=== PATIENT | male | born 1970 | race Caucasian/White ===

== ENCOUNTER → 2018-12-27 09:00 | Outpatient (CLI) | payer OTHER ==
[~2018-12-27 09:00] MED LIST: COZAAR50 MG PO; TOPAMAX100 MG PO; VERELAN180 MG PO
[2018-12-30 00:30] VITALS: BMI 35.7
--- NOTE | 2018-12-31 13:28 | ST ---
PATIENT:RODNEY SOSA MEDICAL RECORD: [id number] SEX: M LOCATION:[facility] ORDER #: ADMISSION DATE: 12/27/18 AGE OF PATIENT: 48 REFERRING PHYSICIAN: INTERPRETING PHYSICIAN: QUYEN BRUSH MD DATE OF SERVICE: 12/27/2018 INDICATIONS: Angina, shortness of breath, hypertension. He was exercised on a standard Priyank protocol for 7 minutes 45 seconds achieving 85% max target heart rate response with 33 mCi of sestamibi injected at peak stress, 11 mCi used previously for rest images. FINDINGS: Gated SPECT reveals preserved ejection fraction at 53% with decreased thickening and brightening throughout the inferior segments. SPECT Imaging: Cardiolite was used as myocardial perfusion agent. There is a mixed perfusion defect inferiorly, partially fixed, partially reversible as well. There is reversibility in the lateral segments. This includes the basal, mid and apical lateral segments. The degree reversibility is mild to moderate. The amount of myocardium involved between the 2 defects is large. OVERALL IMPRESSION: This is an ekvitzlvhcpj-xt-mbld risk nuclear stress test with large area of reversible ischemia inferiorly, laterally as well as partially fixed perfusion defect inferiorly suggestive of multivessel coronary artery disease. TRANSINT:[id number] Voice Confirmation ID: [id number] DOCUMENT ID: [id number] QUYEN BRUSH MD at 1328 CC: [id number] ZACARIAS [id number] DICTATION DATE: 12/27/18 1617 SERVER ENGINEER: 12/28/18 0447 DEP CLI 12/27/18 [facility] [address] [place] [address]
== END | disposition home or self-care (01) ==
LOC: D.HCCARDIO 09:00
PROVIDERS: ATTEND Internal Medicine Interventional Cardiology
DX: I20.9 Angina pectoris, unspecified (principal)

== ENCOUNTER 2018-12-29 20:32 | Observation (INO) | payer OTHER ==
[~2018-12-29] VITALS: Ht 185.4 cm; Wt 122.7 kg
--- NOTE | ~2018-12-29 | HEMODYNAMI ---
PATIENT:RODNEY SOSA MEDICAL RECORD: [id number] : 68 LOCATION:[address] ADMISSION DATE: 12/29/18 Generatedon:12/30/201811:42 Patient name: RODNEY SOSA Patient #: [id number] SSN: : 1970 Date of study: 12/30/2018 Page: Of Hemodynamic Procedure Report Patient Data Patient Demographics Procedure consent was obtained First Name: RODNEY Gender: Male Last Name: IAN : 1970 Patient #: [id number] Age: 48 year(s) Race: Unknown Additional ID: [id number] Contact details [address]: [address] [place] [address] State: [place] City: [place] Zip code: [address] Past Medical History Allergies: No known allergies Admission Admission Data Admission Date: 12/29/2018 Admission Time: 20:45 Room #: [facility] Procedure Procedure Types Cath Procedure Diagnostic Procedure C [facility] w/Coronaries Procedure Description Procedure Date Procedure Date: 12/30/2018 Procedure Start Time: 11:28 Procedure End Time: 11:38 Procedure Staff Name Function Jalen Gary MD Performing Physician Rudy Thao RT Monitor Alida Pink RN Nurse Nenita Green RN Nurse Eli Pace RT Monitor Procedure Data Cath Procedure Fluoroscopy Diagnostic fluoroscopy Total fluoroscopy Time: 1.4 time: 1.4 min min Diagnostic fluoroscopy Total fluoroscopy dose: 409 dose: 409 mGy mGy Contrast Material Contrast Material Type Amount (ml) Isovue 300 54 Entry Location Entry Primary Successful Side Size Upsize Upsize Entry Closure Uribe ccessful Closure Location (Fr) 1 (Fr) 2 (Fr) Remarks Device Remarks Radial Right 6 Fr Mechanical artery Short Compression Estimated blood loss: 5 ml Diagnostic catheters Device Type Used For End Catheter Placement DIAGNOSTIC [place] 110cm 5 Procedure Fr catheter ([id number]) Procedure Complications No complications Procedure Medications Medication Administration Route Dosage Oxygen NC 2 l/min Lidocaine 2% added to field 20 Heparin Flush Bag added to field 2 bags (1000units/500ml NS) 0.9% NaCl I.V. 100 ml/hr Radial Cocktail added to field 1 syringe (Verapamil 2mg/Nitro 400mcg/Heparin 1500units) Versed I.V. 2 mg Fentanyl I.V. 100 mcg Versed I.V. 1 mg Fentanyl I.V. 50 mcg Hemodynamics Rest Heart Rate: 85 (bpm) Snapshots Pre Cath Intra NCS Post Cath Vital Signs Time Heart Resp SPO2 etCO2 NIBP (mmHg) Rhythm Pain Sedation Rate (ipm) (%) (mmHg) Status Level (bpm) 11:16:40 84 15 100 26.3 135/82(101) NSR 0 (11) 10(A) , No pain 11:21:00 93 13 100 27 134/90(114) NSR 0 (11) 10(A) , No pain 11:25:18 97 19 100 20.3 128/76(96) NSR 0 (11) 10(A) , No pain 11:29:32 96 16 97 27 108/75(90) NSR 0 (11) 10(A) , No pain 11:33:48 95 16 97 32.3 97/68(87) NSR 0 (11) 10(A) , No pain 11:39:00 34.5 123/73(86) NSR 0 (11) 10(A) , No pain Medications Time Medication Route Dose Verified Delivered Reason Notes E ffectiveness by by 11:15:40 Oxygen NC 2 l/min Alida Alida for low 02 Joesph Joesph sats RN RN 11:15:55 Lidocaine 2% added 20ml Jalen Rao for local to vial Abdirahman Gary MD anesthetic field 11:16:09 Heparin Flush added 2 bags Alida Alida used for Bag to Joesph Joesph procedure (1000units/500ml field RN RN NS) 11:16:21 0.9% NaCl I.V. 100 Alida Alida used for ml/hr Joesph Joesph data operations director RN 11:24:29 Versed I.V. 2 mg Jalen Alida for Abdirahman ROME Joesph sedation RN 11:24:47 Fentanyl I.V. 100 mcg Jalen Irwin for Abdirahman ROME Joesph sedation RN 11:27:29 Radial Cocktail added 1 Alida Alida used for (Verapamil to syringe Joesph Joesph procedure 2mg/Nitro field RN RN 400mcg/Heparin 1500units) 11:29:28 Versed I.V. 1 mg Jalen Pink sedation RN 11:29:38 Fentanyl I.V. 50 mcg Jalen Pink sedation dairy tester Log Time Note 10:56:50 Rudy Epsteinley RT(R) sent for patient. Start room use. 10:56:52 Time tracking: Regular hours (M-F 7:00 - 5:00) 10:56:59 Plan of Care:Hemodynamics will remain stable., Cardiac rhythm will remain stable., Comfort level will be maintained., Respiratory function will remain adequate., Patient/ family verbilizes understanding of procedure., Procedure tolerated without complication., Recovers from procedure without complications.. 11:07:34 Patient received from PCU to CCL 1 Alert and oriented. Tansferred to table in Supine position. 11:07:36 Warm blankets applied, and angel hugger turned on for patient comfort. 11:07:37 Signed procedure consent form obtained from patient. 11:07:38 Correct patient and procedure confirmed by team. 11:07:39 ECG and BP/O2 sat monitors applied to patient. 11:15:25 Vital chart was started 11:15:40 Oxygen 2 l/min NC was administered by Alida Pink RN; for low 02 sats; Verbal order read back and verified. 11:15:55 Lidocaine 2% 20ml vial added to field was administered by Jalen Gary MD; for local anesthetic; Verbal order read back and verified. 11:16:09 Heparin Flush Bag (1000units/500ml NS) 2 bags added to field was administered by Alida Pink RN; used for procedure; Verbal order read back and verified. 11:16:21 0.9% NaCl 100 ml/hr I.V. was administered by Alida Pink RN; used for procedure; Verbal order read back and verified. 11:17:28 Baseline sample Acquired. 11:17:43 Rhythm: sinus rhythm 11:17:45 Full Disclosure recording started 11:17:49 H&P Date Dictated: 12/30/2018 Within 30 days and on chart.. 11:17:50 Pre-procedure instructions explained to patient. 11:17:50 Pre-op teaching completed and patient verbalized understanding. 11:17:52 Family in patients room. 11:17:53 Patient NPO since Midnight. 11:17:55 Is the patient allergic to Iodine/contrast media? No. 11:17:56 Is patient on blood thinner?No 11:18:00 ACC The patient was administered the following blood thiners within the last 24 hours: None 11:18:02 Patient diabetic? No. 11:18:04 Previous problem with sedation/anesthesia? No ? 11:18:05 Snore? Yes 11:18:06 Sleep apnea? Yes 11:18:07 Deviated septum? No 11:18:07 Opens mouth fully? Yes 11:18:09 Sticks out tongue? Yes 11:18:13 Airway obstruction? No ? 11:18:15 Dentures? No ? 11:18:18 Pre procedure: right dorsailis pedis pulse 1+ Palpable, but thready & weak; easily obliterated 11:18:22 Patient pain scale 0/10 ?. 11:18:24 Modified Terrence's test Ulnar < 7 seconds 11:18:30 IV patent on arrival in left forearm with 0.9% NaCl at O. 11:18:31 Lab results completed and on chart. 11:18:36 Right Radial & Right Groin area was prepped with chlora-prep and draped in sterile fashion 11:18:37 Alarms reviewed by R. N. 11:18:38 Sharps counted by scrub and verified by R.N. 11:18:41 Use device set Radial Dx or PCI 11:18:42 Tegaderm 4 x 4 (1626W) opened to sterile field. 11:18:43 ACIST Manifold (56408) opened to sterile field. 11:18:44 ACIST Hand Control (75722) opened to sterile field. 11:18:45 ACIST Syringe (64489) opened to sterile field. 11:18:45 Medline Cath Pack ([id number]) opened to sterile field. 11:18:45 Bag Decanter () opened to sterile field. 11:18:46 MBrace Wrist Support ([id number]) opened to sterile field. 11:18:47 EMERALD Guide Wire (232-753) opened to sterile field. 11:18:48 SHEATH 6FR RAIN (1149554) opened to sterile field. 11:22:29 Physician arrived 11::30 --------ALL STOP TIME OUT------ 11::31 Final Timeout: patient, procedure, and site verified with staff and physician. All members of the team are in agreement. 11:23:41 Right Radial & Right Groin site verified by team. 11:23:43 Patient allergic to No known allergies 11::48 Fire Safety Assessment: A--An alcohol-based skin anteseptic being used preoperatively., C--Open oxygen or nitrous oxide is being used., D--An ESU, laser, or fiber-optic light is being used. 11:23:53 Physical assessment completed. ASA score P 2 - A patient with mild systemic disease as per Jalen Gary MD. 11:24:29 Versed 2 mg I.V. was administered by Alida Pink RN; for sedation; Verbal order read back and verified. 11:24:47 Fentanyl 100 mcg I.V. was administered by Alida Pink RN; for sedation; Verbal order read back and verified. 11:27:29 Radial Cocktail (Verapamil 2mg/Nitro 400mcg/Heparin 1500units) 1 syringe added to field was administered by Alida Pink RN; used for procedure; Verbal order read back and verified. 11:28:00 1) 90+ Normal kidney functon but urine findings or structural abnormalities or genetic trait point to kidney disease. , 2) 60-89 Mildly reduced kidney function, and other findings (as for stage 1) point to kidney disease. 11:28:05 Maximum allowable contrast dose (3.7 X eGFR X 0.75)200 ml. 11:28:11 Sedation plan: IV Moderate Sedation Medication:Versed, Fentanyl 11:28:16 Zero performed for pressure channel P1 11:28:25 Procedure started. 11:28:33 Local anesthetic to right radial artery with Lidocaine 2% by Jalen Gary MD.INITIAL ACCESS ONLY 11:28:49 A 6 Fr Short sheath was inserted into the Right Radial artery 11::28 Versed 1 mg I.V. was administered by Alida Pink RN; for sedation; Verbal order read back and verified. 11:29:37 A DIAGNOSTIC [place] 110cm 5 Fr catheter (082317) was advanced over the wire and used for Procedure. 11:29:38 Fentanyl 50 mcg I.V. was administered by Alida Pink RN; for sedation; Verbal order read back and verified. 11:30:37 EF : 60 % 11:30:39 LV gram done using ANN 11:30:45 Injector settings: Ml/sec: 5, Volume: 15, 11:30:49 LCA angiography performed. 11:30:58 Injector settings: Ml/sec: 3, Volume: 5, 11:32:01 RCA angiography performed. 11:32:13 Injector settings: Ml/sec: 3, Volume: 5, 11:32:19 Catheter removed. 11:32:26 ZEPHYR REGULAR TR BAND (510084) opened to sterile field. 11:33:01 Sheath removed intact; hemostasis achieved with Mechanical Compression to the Right Radial artery. 11:33:06 Procedure ended.(Physican Out) 11:33:53 Fluoroscopy time 01.40 minutes. 11:34:05 Fluoroscopy dose: 409 mGy 11:34:05 Flurop Dose total: 409 11:34:29 Dose Area Product 596904 mGy/cm. 11:34:35 Contrast amount:Isovue 300 54ml. 11:34:42 Maximum allowable dose exceeded? No. 11:34:44 Sharps counted by scrub and verified by R.N. 11:35:38 Deal band inflated with 10cc of air. 11:35:41 Insertion/operative site no bleeding no hematoma. 11:36:05 Post right radial artery:stable 11:36:11 Post Procedure Pulses reassessed and unchanged 11:36:20 Post-procedure physical assessment completed. ASA score P 2 - A patient with mild systemic disease as per Jalen Gary MD. 11:36:25 Post procedure rhythm: unchanged. 11:36:29 Estimated blood loss: 5 ml 11:36:32 Post procedure instruction explained to patient.Patient verbalizes understanding. 11:36:33 Patient needs reinforcement of post procedure teaching. 11:37:58 Procedure and supply charges have been captured, reviewed, submitted and are correct. 11:38:09 Procedure Complication : No complications 11:38:15 Vital chart was stopped 11:38:19 [facility] Findings: mild to moderate CAD (<70%) 11:38:25 Operative report dictated upon procedure completion. 11:38:26 See physician's report for complete and final results. 11:38:29 Report given to [facility]. 11:38:35 Patient transfered to [facility] with Bed. 11:38:38 Procedure ended. 11:38:38 Full Disclosure recording stopped 11:38:43 End room use (Document Last) Device Usage Item Name Manufacture Quantity Catalog Hospital Part Current Minima l Lot# / Number Charge Number Stock Stock Serial# Code Tegaderm 4 3M 1 1626W [id number] [id number] [id number] 5 x 4 (1626W) ACIST Acist 1 79677 910156 395936 792869 5 Manifold Medical (10921) Systems Inc ACIST Hand Acist 1 55874 943923 496583 948075 5 Control Medical (60913) Systems Inc ACIST Acist 1 07281 195536 536984 911657 20 Syringe Medical (30477) Systems Inc Medline Medline 1 [id number] 266267 65817 750271 5 Cath Pack ([id number]) Bag Microtek 1 2001S 889332 52610 136713 5 Decanter Medical Inc. () MBrace Advanced 1 140-0250-00 809172 65252 576846 5 Wrist Vascular Support Dynamics (008998120) EMERALD Cardinal 1 502-455 907558 520040 890704 5 Guide Wire Health (502-455) SHEATH 6FR Cardinal 1 9752034 430698 1296585 584845 5 [facility] (1028350) DIAGNOSTIC Terumo 1 40-5013 694611 477443 525270 5 [place] 110cm 5 Fr catheter (603943) ZEPHYR Cardinal 1 975173 664705 7224124 638497 5 REGULAR TR Health BAND (252249) Signature Audit [place] Stage Time Signature Unsigned Intra-Procedure 12/30/2018 Eli 11:41:31 AM Sanjeev RT(R) (CV) Intra-Procedure 12/30/2018 Nenita Green 11:42:11 AM RN Intra-Procedure 12/30/2018 Jalen Gary 11:42:[address] [facility] [address] [place] [address]
[2018-12-29] MEDS ORDERED: TOPAMAX100 MG PO (20:37)
[2018-12-29] MEDS ORDERED: VERELAN180 MG PO (20:37)
[2018-12-29] MEDS ORDERED: COZAAR50 MG PO (20:38)
[2018-12-29 21:28] LABS: BASOPHILS 0.2 % (0-2); EOSINOPHILS 1.8 % (0-7); HEMATOCRIT 43.3 % (42.0-54.0); HEMOGLOBIN 14.6 g/dL (13.5-17.5); IMMATURE GRANULOCYTES 0.3 % (0-5); LYMPHOCYTES 23.3 % (15-50); MCH 30.9 pg (26.0-34.0); MCHC 33.7 g/dL (31.0-37.0); MCV 91.5 fL (80.0-100.0); MEAN PLATELET VOLUME 11.9 fL (7.4-10.4); MONOCYTES 9.4 % (2-11); PLATELET COUNT 216 10x3/uL (130-400); RBC 4.73 10x6/uL (4.20-6.10); RDW 13.5 % (11.5-14.5); WBC 12.9 10x3/uL (4.8-10.8)
[2018-12-29 21:30] VITALS: BP 151/86
[2018-12-29 21:50] LABS: APTT 29.2 SECONDS (22.8-39.4); INR 1.1 (0.85-1.17); PROTIME 13.7 SECONDS (11.6-15.0)
[2018-12-29 21:59] LABS: ALBUMIN 3.7 g/dL (3.4-5.0); ALKALINE PHOSPHATASE 75 U/L (46-116); ALT (SGPT) 25 U/L (10-68); BILIRUBIN - TOTAL 0.48 mg/dL (0.2-1.3); CALC OSMOLALITY 281 mosm/kg (275-300); CALCIUM 8.3 mg/dL (8.5-10.1); CARBON DIOXIDE 22.9 mmol/L (21.0-32.0); CHLORIDE - SERUM 108 mmol/L (98-107); CREATININE - SERUM 1.1 mg/dL (0.6-1.3); GLUCOSE 77 mg/dL (74-106); POTASSIUM - SERUM 3.6 mmol/L (3.5-5.1); PROTEIN - SERUM 7.3 g/dL (6.4-8.2); SODIUM 141 mmol/L (136-145); UREA NITROGEN 18 mg/dL (7-18); eGFR NON AFRICAN AMERICAN 75 mL/min (90-120)
[2018-12-29 22:05] LABS: MAGNESIUM - SERUM 2.1 mg/dL (1.8-2.4)
[2018-12-29 22:06] LABS: TROPONIN-I < 0.017 ng/mL (0.000-0.060)
--- NOTE | 2018-12-29 22:24 | NUR ---
PT SHARPLY INHALES, THIS NURSE ASKED PT IF HE HAD CHEST PAIN. PT STATES "I HAD A SHARP PAIN, BUT IT IS GONE NOW." THIS NURSE ATTEMPTED TO GIVE PT NITROGLYCERIN, PT REFUSED. EDP NOTIFIED.
[2018-12-29 22:30] VITALS: BP 129/79
--- NOTE | 2018-12-29 23:45 | NUR ---
PT ARRIVED TO ROOM VIA W/C. GIRLFRIEND PRESENT AT BEDSIDE. DENIES CHEST PAIN AT THIS TIME. DENIES NEEDS. RR EVEN AND UNLABORED. NO S/S OF DISTRESS NOTED AT. CALL LIGHT IN REACH. WILL CTM.
[2018-12-30 00:30] VITALS: BP 136/81; Ht 185.4 cm; Wt 122.7 kg
[2018-12-30 04:00] VITALS: BP 106/66
--- NOTE | 2018-12-30 04:25 | NUR ---
NO TELEMETRY AVAILABLE PER CARPET CLEANING TECHNICIAN
[2018-12-30 05:10] LABS: BASOPHILS 0.3 % (0-2); EOSINOPHILS 2.9 % (0-7); HEMATOCRIT 40.3 % (42.0-54.0); HEMOGLOBIN 13.7 g/dL (13.5-17.5); IMMATURE GRANULOCYTES 0.3 % (0-5); LYMPHOCYTES 30.2 % (15-50); MCH 31.1 pg (26.0-34.0); MCV 91.4 fL (80.0-100.0); MEAN PLATELET VOLUME 11.8 fL (7.4-10.4); MONOCYTES 11.5 % (2-11); NEUTROPHILS 54.8 % (40-80); PLATELET COUNT 203 10x3/uL (130-400); RBC 4.41 10x6/uL (4.20-6.10); RDW 13.6 % (11.5-14.5); WBC 10.1 10x3/uL (4.8-10.8)
--- NOTE | 2018-12-30 07:14 | NUR ---
REPORT RECIEVED. WILL CONTINUE WITH POC. PT CURRENTLY LYING SEMI FOWLERS. CALL LIGHT W/I REACH. PT IS AAO AND UP AD OLAF. RR EVEN AND UNLABORED ON RA. R.AC PIV IS SALINE LOCKED. NO S/S OF DISTRESS NOTED AND PT DENIES ANY CP AT THIS TIME. PT DENIES ANY NEEDS AT THIS TIME. WILL CTM.
[2018-12-30 08:07] LABS: CALC OSMOLALITY 279 mosm/kg (275-300); CARBON DIOXIDE 21.7 mmol/L (21.0-32.0); CHLORIDE - SERUM 110 mmol/L (98-107); CKMB 0.5 U/L (0.0-3.6); CREATINE KINASE 81 UL (21-232); GLUCOSE 83 mg/dL (74-106); MAGNESIUM - SERUM 2.2 mg/dL (1.8-2.4); PHOSPHOROUS 2.9 mg/dL (2.5-4.9); POTASSIUM - SERUM 3.3 mmol/L (3.5-5.1); PRO BNP 29 pg/mL (0-125); SODIUM 140 mmol/L (136-145); TROPONIN-I < 0.017 ng/mL (0.000-0.060); UREA NITROGEN 17 mg/dL (7-18); eGFR NON AFRICAN AMERICAN 84 mL/min (90-120)
[2018-12-30 08:30] VITALS: BP 125/78
[2018-12-30 09:37] LABS: ALT (SGPT) 24 U/L (10-68); CALC OSMOLALITY 278 mosm/kg (275-300); CALCIUM 7.9 mg/dL (8.5-10.1); CARBON DIOXIDE 19.6 mmol/L (21.0-32.0); CHLORIDE - SERUM 111 mmol/L (98-107); CHOL - HDL RATIO 4.1 ratio (2.3-4.9); CHOLESTEROL, TOTAL 144 mg/dL (0-200); GLUCOSE 78 mg/dL (74-106); HDL CHOLESTEROL 35 mg/dL (32-96); LDL CHOLESTEROL 88 mg/dL (0-100); LDL-HDL RATIO 2.5 ratio (1.5-3.5); POTASSIUM - SERUM 3.5 mmol/L (3.5-5.1); SODIUM 140 mmol/L (136-145); TRIGLYCERIDE 109 mg/dL (30-200); UREA NITROGEN 16 mg/dL (7-18); eGFR NON AFRICAN AMERICAN 84 mL/min (90-120)
--- NOTE | 2018-12-30 11:07 | NUR ---
PREOP MEDICATIONS ADMININSTERED AND PT TRANSFERED TO SPICE CLEANER. WILL CTM.
[2018-12-30 12:30] VITALS: BP 119/70
--- NOTE | 2018-12-30 14:59 | NUR ---
PT DISCHARGED HOME VIA WHEELCHAIR WITH FAMILY. PIV REMOVED WITH CATHETER TIP FULLY INTACT. ZEPHER BAND REMOVED. NO S/S OF HEMATOMA OR BLEEDING PRESENT. PERIPHERAL PULSES BILATERALLY EVEN AND STRONG. TELEMETRY REMOVED AND RETURNED.
--- NOTE | 2018-12-31 06:46 | MORECARE ---
CASE MANAGEMENT DISCHARGE SUMMARY PATIENT: RODNEY SOSA UNIT: [id number] ADM DATE: 12/29/18 AGE: 48 : [birth year] SEX: M ROOM/BED: D.2101 AUTHOR: POLO RAMOS PHYSICIAN: REFERRING PHYSICIAN: OMAR SHAIKH MD DATE OF SERVICE: 12/31/18 Discharge Plan Patient Name: RODNEY SOSA [facility] [facility] 1970 Planned Disposition: Home Anticipated Discharge Date: 12/30/18 Discharge Date: 12/30/2018 Expected LOS: 1 Initial Reviewer: [email or web address] Initial Review Date: 12/31/2018 Generated: 12/31/18 7:45 am Patient Name: RODNEY SOSA Page [id number] at 0646 All edits/amendments must be made on the electronic document DICTATION DATE: 12/31/18644 DECORATIVE ENGRAVER: KARLEE 12/31/18644 RPT#: [id number] DC DATE:12/30/18 STATUS: DIS IN [facility] [address] [place] [address] END OF REPORT
--- NOTE | 2018-12-31 13:29 | OP ---
PATIENT NAME: RODNEY SOSA MEDICAL RECORD: [id number] :68 LOCATION:D.M2 D.2101 ADMISSION DATE:12/29/18 SURGEON: QUYEN BRUSH MD DATE OF OPERATION: 12/30/2018 PROCEDURES: 1. Left heart catheterization. 2. Selective coronary angiography. 3. Left ventriculogram. INDICATION: Chest pain compatible with angina and abnormal nuclear stress test. PROCEDURE IN DETAIL: After informed consent was obtained and after a detailed description of risks, benefits as well as alternative therapies, the patient elected to proceed with angiogram and heart catheterization. The right radial area was prepped and draped in normal sterile fashion. Right radial artery was cannulated via modified Seldinger technique with placement of 5-Stateless sheath. All catheters exchanged through this sheath. FINDINGS: Left ventriculogram was performed in standard 30-degree ANN view, reveals good cardiac wall motion throughout all segments. Overall ejection fraction estimated 60%. SELECTIVE CORONARY ANGIOGRAPHY: Left main, left anterior descending, left circumflex, right coronary artery are all smooth-walled vessels with no angiographic evidence of coronary artery disease. OVERALL IMPRESSION: 1. No angiographic evidence of coronary artery disease. 2. Normal left heart pressures. 3. Normal left ventricular systolic function. Chest pain is noncardiac in etiology. No further cardiac workup needs to be ascertained. TRANSINT:[id number] Voice Confirmation ID: [id number] DOCUMENT ID: [id number] QUYEN BRUSH MD at 1329 CC: [id number] DICTATION DATE: 12/30/18 1135 NONPROFIT DIRECTOR: 12/30/18 1149 DIS IN 12/30/18 [facility] [id number] [place] [address]
--- NOTE | 2019-01-03 13:56 | CN ---
PATIENT NAME:JASE SOSA MEDICAL RECORD: [id number] : 68 LOCATION:[facility] D.2101 ADMIT DATE: 12/29/18 ACCOUNT: [id number] CONSULTING PHYSICIAN: ROMAN NEWBY MD REFERRING PHYSICIAN: OMAR SHAIKH MD DATE OF CONSULTATION: 12/30/2018 HISTORY OF PRESENT ILLNESS: Jase Sosa is a 48-year-old gentleman with known history of coronary artery disease, has a history of hypertension as well as family history of coronary artery disease, presented to the ER with chest pain radiating to the left shoulder, it has been going on for some time; however, this is first episode of rest symptomology. He did have a nuclear stress testing with intermediate to high risk scan. He is admitted for further evaluation. PAST MEDICAL HISTORY: Includes history of hypertension. ALLERGIES: Unknown. DAILY MEDICATIONS: Include verapamil 180 mg p.o. daily, losartan 50 mg p.o. every day. REVIEW OF SYSTEMS: The patient reports easy bruising but reports no swollen glands. The patient reports no fever, no night sweats, no significant weight gain, no significant weight loss. No significant exercise tolerance. The patient reports no dry eyes, no irritation, no vision change. Patient reports no difficulty hearing and no ear pain. Patient reports no frequent nose bleeds or nose and sinus problems. Patient reports on arm pain on exertion. No shortness of breath while lying down. No history of heart murmur. Patient reports no cough, no wheezing or coughing up blood. Patient reports no abdominal pain, no vomiting. Normal appetite. No diarrhea and not vomiting blood. No nausea and no constipation. Patient reports no incontinence. No difficulty urinating. No hematuria. No increased frequency. Patient reports no muscle aches. No weakness, no arthralgias, no back pain. No swelling of the extremities. Patient reports no abnormal mole, no jaundice, no rashes. Reports no loss of consciousness. No weakness and no numbness. No seizures, dizziness, or headaches. The patient reports no depression, no sleep disturbance, feeling safe in a relationship and no alcohol abuse. Patient reports on fatigue. Reports no runny nose or sinus pressure. No itching, no hives, and no frequent sneezing. PHYSICAL EXAMINATION: GENERAL: Pleasant gentleman in no acute distress, appears stated age. VITAL SIGNS: Blood pressure is 106/66, pulse 70 and regular. HEENT: Normocephalic, atraumatic. NECK: No JVD or bruit. HEART: Regular. Questionable S4 gallop. LUNGS: Good air excursion. ABDOMEN: Soft, nontender. EXTREMITIES: Pulses well preserved, 2+ with no edema. DIAGNOSTIC DATA: Cardiac stress testing is abnormal as described above. IMPRESSION: Exertional angina, progressing to rest symptomology. CONSULT REPORT [id number] JASE SOSA PLAN: For angiography, intervention based on above. TRANSINT:[id number] Voice Confirmation ID: [id number] DOCUMENT ID: [id number] ROMAN NEWBY MD at 1356 CC: [id number] DICTATION DATE: 12/30/18838 CHICKEN BUYER: 12/30/18916 DIS IN 12/30/18 [facility] [address] [place] [address]
== END 2018-12-30 15:00 | disposition home or self-care (01) ==
LOC: D.ER 20:32 → D.M2 20:45 → OBSVTIME 20:45 → D.M2 20:45 → D.SDCHOLD 12-30 13:26 → D.M2 12-30 13:26
PROVIDERS: Family Medicine; Internal Medicine Interventional Cardiology; ADMIT Family Medicine; ATTEND Family Medicine
DX: I25.110 Atherosclerotic heart disease of native coronary artery with unstable angina pectoris (principal); I10 Essential (primary) hypertension